=== PATIENT | male | born 1935 | race Caucasian/White ===

== ENCOUNTER → 2016-10-03 | Outpatient (CLI) | payer MEDICARE | LOC: KOH-I 08:15 | DX: N18.3 Chronic kidney disease, stage 3 (moderate) (principal); N28.89 Other specified disorders of kidney and ureter; R94.4 Abnormal results of kidney function studies | CPT/HCPCS: 93975 ==

== ENCOUNTER → 2022-02-27 | Outpatient (CLI) | payer OTHER | LOC: EXRD 13:00 | DX: R94.6 Abnormal results of thyroid function studies (principal); E04.2 Nontoxic multinodular goiter | CPT/HCPCS: 76536 ==